=== PATIENT | male | born 1960 | race Hispanic/Latino ===

== ENCOUNTER 2019-11-22 | Emergency (ER) | payer BC ==
[~2019-11-22] MED LIST: ATENOLOL50 MG OR; AUGMENTIN875TAB PO; BENADRYL1 CRE EX; ELIMITE5 % EX; FLUZONE SPLT1 M1 IM; GLYB/METFO5 MG/500 M PO; HYDROXYZ HCL25 MG PO; LINDANE 1% EX; LISINOP/HCTZ1 TA1 PO; LISINOPRIL20 M1 PO; LISINOPRIL20 MG OR; LISINOPRIL20 MG PO; LOVASTATIN10 M1 PO; METFORMIN500 MG PO; TRIAMCINOLON0.11 EX; VISTARIL25 MG OR
[2019-11-22] MEDS ORDERED: METFORMIN500 MG PO (08:02)
[2019-11-22] MEDS ORDERED: GLYBURIDE5 M1 PO (08:03)
[2019-11-22] MEDS ORDERED: LISINOP/HCTZ1 TA2 PO (08:03)
[2019-11-22] MEDS ORDERED: PENICILLN VK500 M1 PO (09:28)
[2019-11-22] MEDS ORDERED: TESSALON PERLE100 MG PO (09:54)
== END 2019-11-22 09:50 | disposition home or self-care (01) | DRG 153 ==
DX: J02.0 Streptococcal pharyngitis (principal); I10 Essential (primary) hypertension; E11.9 Type 2 diabetes mellitus without complications; Z79.84 Long term (current) use of oral hypoglycemic drugs

== ENCOUNTER 2019-11-26 19:05 | Observation (INO) | payer BC ==
[~2019-11-26] VITALS: Ht 175.3 cm; Wt 120.0 kg
[~2019-11-26 19:05] MED LIST changes: +GLYBURIDE5 M1 PO; +LISINOP/HCTZ1 TA2 PO; +PENICILLN VK500 M1 PO; +TESSALON PERLE100 MG PO
[2019-11-26 20:30] LABS: URINE BILIRUBIN - DIPSTICK NEGATIVE (NEGATIVE); URINE BLOOD DIPSTICK TRACE-INTACT (NEGATIVE); URINE COLOR YELLOW; URINE GLUCOSE - DIPSTICK >=1000 mg/dL (NEGATIVE); URINE KETONE NEGATIVE (NEGATIVE); URINE LEUK ESTERASE NEGATIVE (NEGATIVE); URINE NITRITE - DIPSTICK NEGATIVE (Negative); URINE PROTEIN - DIPSTICK NEGATIVE (NEG-TRACE); URINE UROBILINOGEN - DIPSTICK 0.2 E.U./dL (0.2)
[2019-11-26 20:33] LABS: BARBITURATES NEGATIVE (NEGATIVE); COCAINE NEGATIVE (NEGATIVE); METHADONE NEGATIVE (NEGATIVE); OXCYCODONE NEGATIVE (NEGATIVE); TETRAHYDROCANNABIONOL NEGATIVE (NEGATIVE); TRICYLIC ANTIDEPRESSANTS NEGATIVE (NEGATIVE)
[2019-11-26 20:35] LABS: HEMATOCRIT 42.8 % (39.0-50.0); IMMATURE GRANULOCYTES 0.5 % (0.0-5.0); MEAN CELL VOLUME 86.6 fL CALC (80.0-100.0); MEAN CORPUSCULAR HGB 30.4 pG CALC (26.0-32.0); NEUT# 8.03 thou/uL (1.82-7.42); RED BLOOD COUNT 4.94 mill/uL (4.70-6.10); RED CELL DISTRI WIDTH 12.3 % (11.5-15.5)
[2019-11-26 20:53] LABS: ACT PARTIAL THROMBO TIME 27.1 SECONDS (20.0-32.5); PROTHROMBIN TIME 10.7 SECONDS (9.0-12.5)
[2019-11-26 20:54] LABS: ALBUMIN 4.2 g/dL (3.2-5.0); ALKALINE PHOSPHATASE 112 u/l (38-126); BUN 56 mg/dL (9-20); BUN/CREATININE RATIO 30 (12-20 (CALC)); CARBON DIOXIDE 26 mmol/l (22-30); CREATININE 1.8 mg/dL (0.7-1.3); ETHYL ALCOHOL 0 mg/dl (0-30); GFR 39 ML/MIN (>=60 (CALC)); GFR FOR AFR.AMER. 47 ML/MIN (>=60 (CALC)); LIPASE 128 u/l (23-300); MAGNESIUM 2.2 mg/dL (1.6-2.3); POTASSIUM 3.6 mmol/l (3.5-5.1); SGOT/AST 25 u/l (17-59); TOTAL PROTEIN 8.3 g/dL (6.3-8.2)
[2019-11-26 20:57] LABS: ANION GAP 19 (6-22 (CALC)); CHLORIDE 89 mmol/l (95-108); SODIUM 130 mmol/l (137-146)
[2019-11-26 23:05] VITALS: BP 101/62
[2019-11-27 04:22] VITALS: BP 137/78
[2019-11-27 05:36] LABS: HEMOGLOBIN 14.4 g/dl (14.0-18.0); IMMATURE GRANULOCYTES 0.6 % (0.0-5.0); MEAN CELL VOLUME 88.4 fL CALC (80.0-100.0); MEAN CORPUSCULAR HGB 30.3 pG CALC (26.0-32.0); MEAN CORPUSCULAR HGB CONC 34.3 g/L CALC (32.0-36.0); NEUT# 6.81 thou/uL (1.82-7.42); RED BLOOD COUNT 4.75 mill/uL (4.70-6.10); RED CELL DISTRI WIDTH 12.2 % (11.5-15.5)
[2019-11-27 05:56] LABS: ALBUMIN 3.4 g/dL (3.2-5.0); ALKALINE PHOSPHATASE 79 u/l (38-126); ANION GAP 16 (6-22 (CALC)); BILIRUBIN, TOTAL 0.7 mg/dL (0.0-1.4); BUN 44 mg/dL (9-20); BUN/CREATININE RATIO 36 (12-20 (CALC)); CARBON DIOXIDE 23 mmol/l (22-30); CHLORIDE 98 mmol/l (95-108); CREATININE 1.2 mg/dL (0.7-1.3); GFR > 60 ML/MIN (>=60 (CALC)); GFR FOR AFR.AMER. > 60 ML/MIN (>=60 (CALC)); POTASSIUM 3.8 mmol/l (3.5-5.1); SGOT/AST 22 u/l (17-59); SODIUM 134 mmol/l (137-146); TOTAL PROTEIN 6.7 g/dL (6.3-8.2)
[2019-11-27 08:43] VITALS: BP 98/67
[2019-11-27 10:21] LABS: CHOLESTEROL HDL RATIO 6.3 (<4.4 (CALC))
[2019-11-27 11:00] VITALS: BP 117/73
[2019-11-27 11:33] VITALS: BP 126/70
[2019-11-27 15:00] VITALS: BP 113/65
[2019-11-27 19:09] VITALS: BP 104/53
[2019-11-28] VITALS (7 sets, daily range): BP systolic 112–153; BP diastolic 64–77
[2019-11-28 05:28] LABS: HEMATOCRIT 40.2 % (39.0-50.0); HEMOGLOBIN 14.1 g/dl (14.0-18.0); MEAN CELL VOLUME 87.4 fL CALC (80.0-100.0); MEAN CORPUSCULAR HGB 30.7 pG CALC (26.0-32.0); MEAN CORPUSCULAR HGB CONC 35.1 g/L CALC (32.0-36.0); RED BLOOD COUNT 4.6 mill/uL (4.70-6.10); RED CELL DISTRI WIDTH 12.1 % (11.5-15.5)
[2019-11-28 05:56] LABS: ANION GAP 13 (6-22 (CALC)); BUN 25 mg/dL (9-20); BUN/CREATININE RATIO 32 (12-20 (CALC)); CARBON DIOXIDE 24 mmol/l (22-30); CHLORIDE 100 mmol/l (95-108); CREATININE 0.8 mg/dL (0.7-1.3); GFR > 60 ML/MIN (>=60 (CALC)); GFR FOR AFR.AMER. > 60 ML/MIN (>=60 (CALC)); MAGNESIUM 1.9 mg/dL (1.6-2.3); POTASSIUM 3.4 mmol/l (3.5-5.1); SODIUM 134 mmol/l (137-146)
[2019-11-28] MEDS ORDERED: GLYBURIDE5 M1 PO (12:14)
[2019-11-28] MEDS ORDERED: JANUVIA100 MG PO (12:15)
== END 2019-11-28 16:00 | disposition home or self-care (01) | DRG 638 ==
LOC: ED 19:05 → MS2 21:28
PROVIDERS: Nurse Practitioner Family; ADMIT Internal Medicine; ATTEND Internal Medicine
DX: E11.65 Type 2 diabetes mellitus with hyperglycemia (principal); N17.9 Acute kidney failure, unspecified; E86.0 Dehydration; I10 Essential (primary) hypertension; J02.0 Streptococcal pharyngitis; T36.0X6A Underdosing of penicillins, initial encounter; Z91.128 Patient's intentional underdosing of medication regimen for other reason; Z79.84 Long term (current) use of oral hypoglycemic drugs
CPT/HCPCS: G0378

== ENCOUNTER 2023-04-18 07:36 | Emergency (ER) | payer BC ==
[~2023-04-18] VITALS: Ht 175.3 cm; Wt 1058.5 kg
[2023-04-18] VITALS (14 sets, daily range): BP systolic 77–117; BP diastolic 32–72
[~2023-04-18 07:36] MED LIST changes: +JANUVIA100 MG PO
[2023-04-18 08:18] LABS: BASO% 0.3 % (0-3); EOS% 0.8 % (0-8); HEMATOCRIT 45.3 % (39.0-50.0); HEMOGLOBIN 15.4 g/dl (14.0-18.0); IMMATURE GRANULOCYTES 0.3 % (0.0-5.0); LYMPH% 15.5 % (15-41); MEAN CELL VOLUME 88.3 fL CALC (80.0-100.0); MONO% 7.7 % (2-13); NEUT# 4.97 thou/uL (1.82-7.42); NEUT% 75.4 % (42-76); RED BLOOD COUNT 5.13 mill/uL (4.70-6.10); RED CELL DISTRI WIDTH 12.1 % (11.5-15.5)
[2023-04-18 08:27] LABS: ALKALINE PHOSPHATASE 71 u/l (38-126); AMYLASE 85 u/l (30-110); ANION GAP 18 (6-22 (CALC)); CARBON DIOXIDE 22 mmol/l (22-30); CHLORIDE 99 mmol/l (95-108); LIPASE 164 u/l (23-300); POTASSIUM 3.4 mmol/l (3.5-5.1); SGOT/AST 32 u/l (19-48); SODIUM 137 mmol/l (137-146)
[2023-04-18 08:28] LABS: ALBUMIN 4.1 g/dL (3.2-5.0); BILIRUBIN, TOTAL 1.4 mg/dL (0.2-1.3); BUN 49 mg/dL (8-23); BUN/CREATININE RATIO 23 (12-20 (CALC)); CREATININE 2.1 mg/dL (0.7-1.3); GFR FOR AFR.AMER. 39 ML/MIN (>=60 (CALC)); GFR OTHER RACES 32 ML/MIN (>=60 (CALC))
[2023-04-18 08:56] LABS: URINE BLOOD DIPSTICK NEGATIVE (NEGATIVE); URINE GLUCOSE - DIPSTICK NEGATIVE (NEGATIVE); URINE KETONE 15 mg/dL (NEGATIVE); URINE LEUK ESTERASE NEGATIVE (NEGATIVE); URINE PROTEIN - DIPSTICK 30 mg/dL (NEG-TRACE); URINE SPECIFIC GRAVITY 1.025
[2023-04-18 09:03] LABS: URINE BILIRUBIN - DIPSTICK SEE COMMNET (NEGATIVE); URINE COLOR DK. YELLOW; URINE NITRITE - DIPSTICK NEGATIVE (Negative)
[2023-04-18 09:18] LABS: URINE BACTERIA MANY hpf
[2023-04-18 09:19] LABS: URINE HYALINE CAST MANY lpf (NONE-RARE)
[2023-04-18] MEDS ORDERED: BACTRIM DS1 TAB PO (11:46)
== END 2023-04-18 12:10 | disposition home or self-care (01) | DRG 690 ==
LOC: ED 07:36
PROVIDERS: Family Medicine
DX: N39.0 Urinary tract infection, site not specified (principal); E86.0 Dehydration; E11.65 Type 2 diabetes mellitus with hyperglycemia; I10 Essential (primary) hypertension; Z79.84 Long term (current) use of oral hypoglycemic drugs
CPT/HCPCS: S0164